=== PATIENT | female | born 1960 ===

== ENCOUNTER 2021-07-16 05:28 | Inpatient (IN) ==
[2021-07-16] MEDS ORDERED: hydrOXYzine pamoate 25 MG CAPSULE PO PRN (07:57)
[2021-07-16] MEDS ORDERED: *HR* LORazepam 1 MG TABLET PO PRN (07:57)
[2021-07-16] MEDS ORDERED: Mag Hydrox/Al Hydrox/Simeth 30 ML UDC PO PRN (07:57)
[2021-07-16] MEDS ORDERED: MOM Conc 10 ML UD.LIQ PO PRN (07:57)
[2021-07-16] MEDS ORDERED: Acetaminophen 325 MG TABLET PO PRN (07:57)
[2021-07-16] MEDS ORDERED: *HR* LORazepam 2 MG/ML VIAL IM PRN (07:57)
[2021-07-16] MEDS ORDERED: traZODone 50 MG TABLET PO PRN (07:57)
[2021-07-16] MEDS ORDERED: Haloperidol Lactate 5 MG/ML VIAL IM PRN (07:57)
[2021-07-16] MEDS ORDERED: haloperidoL 5 MG TABLET PO PRN (07:57)
[2021-07-16] MEDS: Nicotine 21 MG PATCH.TD24 TD SCH (09:39)
[2021-07-16] MEDS: ALPRAZolam 1 MG TABLET PO PRN ×3 (12:00→23:29)
[2021-07-17] MEDS: Nicotine 21 MG PATCH.TD24 TD SCH (08:48)
[2021-07-17] MEDS: ALPRAZolam 1 MG TABLET PO PRN ×3 (08:48→20:30)
[2021-07-18] MEDS: ALPRAZolam 1 MG TABLET PO PRN ×3 (09:03→20:06)
[2021-07-18] MEDS: Nicotine 21 MG PATCH.TD24 TD SCH (09:03)
[2021-07-19] MEDS: ALPRAZolam 1 MG TABLET PO PRN ×3 (10:25→20:54)
[2021-07-19] MEDS: Nicotine 21 MG PATCH.TD24 TD SCH (10:25)
[2021-07-20] MEDS: Nicotine 21 MG PATCH.TD24 TD SCH (10:07)
[2021-07-20] MEDS: ALPRAZolam 1 MG TABLET PO PRN ×2 (10:11→14:24)
[2021-07-20] MEDS ORDERED: FLU Vac QV 21-22 (6Month+)/PF 0.5 ML SYRINGE IM ONE (11:31)
[2021-07-20 11:45] VITALS: BP 133/60; PULSE 109; TEMP 97.9; O2SAT 95
== END 2021-07-20 16:05 | disposition home or self-care (01) | DRG 885 ==
LOC: 1ANU 05:28
PROVIDERS: ADMIT Psychiatry & Neurology Psychiatry; ATTEND Psychiatry & Neurology Psychiatry